=== PATIENT | female | born 1990 | race African-American/Black ===

== ENCOUNTER 2019-12-18 08:43 | Observation (INO) | payer SELFPAY ==
[2019-12-18] MEDS ORDERED: DEXAMETHASONE SOD PHOSPHATE INJ 4 MG/1 ML VIAL ONE (09:21)
[2019-12-18] MEDS ORDERED: ONDANSETRON HCL INJ/PF 4 MG/2 ML SDV ONE (09:21)
[2019-12-18] MEDS ORDERED: NEOSTIGMINE METHYLSULFATE 10 MG/10 ML VIAL ONE (09:21)
[2019-12-18] MEDS ORDERED: GLYCOPYRROLATE 1 MG/5 ML VIAL ONE (09:21)
[2019-12-18] MEDS ORDERED: ROCURONIUM BROMIDE INJ 50 MG/5 ML VIAL IV ONE (09:21)
[2019-12-18 09:22] LABS: BASOPHILS % (AUTO) 0.3 % (0-2); EOSINOPHILS % (AUTO) 0.3 % (0-6); HEMATOCRIT 37.1 % (36.0-47.0); HEMOGLOBIN 12.2 g/dL (12.0-15.5); LYMPHOCYTES % (AUTO) 14.2 % (13-45); MEAN CORPUSCULAR HEMOGLOBIN 28.5 pg (27.0-33.4); MEAN CORPUSCULAR HGB CONC 32.9 g/dL (32.0-36.0); MEAN CORPUSCULAR VOLUME 87 fl (80-97); PLATELET COUNT 335 10^3/uL (150-450); RED BLOOD COUNT 4.28 10^6/uL (3.72-5.28); RED CELL DISTRIBUTION WIDTH 14.8 % (11.5-14.0); SEGMENTED NEUTROPHILS % (AUTO) 78.2 % (42-78); TOTAL CELLS COUNTED % (AUTO) 100 %
[2019-12-18 09:42] LABS: ALBUMIN 4.4 g/dL (3.5-5.0); ALKALINE PHOSPHATASE 76 U/L (38-126); ANION GAP 6 (5-19); ASPARTATE AMINO TRANSFERASE 23 U/L (14-36); BILIRUBIN,TOTAL 0.9 mg/dL (0.2-1.3); BLOOD UREA NITROGEN 8 mg/dL (7-20); CALCIUM 9.2 mg/dL (8.4-10.2); CARBON DIOXIDE 25 mmol/L (22-30); CHLORIDE 106 mmol/L (98-107); GLUCOSE 95 mg/dL (75-110); POTASSIUM 4.2 mmol/L (3.6-5.0); TOTAL PROTEIN 7.6 g/dL (6.3-8.2)
--- NOTE | 2019-12-18 10:37 | ER Document Report ---
ED Medical Screen (RME) - General Chief Complaint: Flank Pain Stated Complaint: FLANK PAIN Time Seen by Provider: 12/18/19 10:10 Notes: HPI: Right flank pain for 5 days with nausea vomiting. Patient presented by EMS. Requested by nursing to see the patient in the triage process. Patient had wanted to leave without being further evaluated. I spoke with the patient at length. Based on the lab work currently that has been processed patient is and this raises concern for ectopic . I spoke with the patient at length about this I gave her the risks of leaving including if she has a tubal or an ectopic or ruptured ectopic. Patient verbalizes understanding of this and now states that she will stay for evaluation PHYSICAL EXAMINATION: Mild tenderness to the right pelvis on palpation limited exam in triage I have greeted and performed a rapid initial assessment of this patient. A comprehensive ED assessment and evaluation of the patient, analysis of test results and completion of medical decision making process will be conducted by an additional ED providers. - Related Data Allergies/Adverse Reactions: No Known Allergies Allergy (Unverified 12/18/19 09:47) Home Medications: denies Past Medical History - Social History Chew tobacco use (# tins/day): No Frequency of alcohol use: Social Drug Abuse: None Past Surgical History: Reports: Hx Section - x2, Hx Tonsillectomy Physical Exam - Vital signs Vitals: Temp Pulse Resp BP Pulse Ox 98.7 F 98 21 H 143/84 H 100 12/18/19 08:50 12/18/19 08:50 12/18/19 08:50 12/18/19 08:50 12/18/19 08:50 Course - Vital Signs Vital signs: Temp Pulse Resp BP Pulse Ox 98.7 F 98 21 H 143/84 H 100 12/18/19 08:50 12/18/19 08:50 12/18/19 08:50 12/18/19 08:50 12/18/19 08:50 - Laboratory Result Diagrams: 12/18/19 09:00 12/18/19 09:00 Laboratory results interpreted by me: 12/18/19 12/18/19 12/18/19 09:00 09:00 09:00 WBC 14.0 H RDW 14.8 H Absolute Neuts (auto) 11.0 H Seg Neutrophils % 78.2 H Sodium 136.5 L Serum HCG, Qual POSITIVE H
[2019-12-18] MEDS ORDERED: NORMAL SALINE 1000 ML 1,000 ML IV ONE ×2 (10:45→13:07)
[2019-12-18] MEDS ORDERED: ONDANSETRON HCL INJ/PF 4 MG/2 ML SDV IV ONE (10:45)
[2019-12-18] MEDS ORDERED: MORPHINE SULFATE 10 MG/ML INJ IV ONE (10:45)
--- NOTE | 2019-12-18 10:56 | ER Document Report ---
Entered by JD BRAY SCRIBE 12/18/19 1039 Acting as scribe for:ROBERT CABRERA MD ED GI/ - General Chief Complaint: Flank Pain Stated Complaint: FLANK PAIN Time Seen by Provider: 12/18/19 10:10 Information source: Patient Notes: This 29 year old female patient presents to the emergency department today with complaints of right lower quadrant abdominal pain for the last four days. Patient reports that the pain now seems to radiate back to her right flank as well. Patient states her LMP was in mid october but she does not know the date. Patient states it also hurts when she moves. - Related Data Allergies/Adverse Reactions: No Known Allergies Allergy (Unverified 12/18/19 09:47) Home Medications: denies Past Medical History - General Information source: Patient - Social History Smoking Status: Current Every Day Smoker Cigarette use (# per day): Yes - 1 pack per week Chew tobacco use (# tins/day): No Frequency of alcohol use: Social - wine Drug Abuse: None Lives with: Family Family History: Reviewed & Not Pertinent Patient has homicidal ideation: No - Medical History Medical History: Negative Past Surgical History: Reports: Hx Section - x2, Hx Tonsillectomy Review of Systems - Review of Systems Constitutional: No symptoms reported EENT: No symptoms reported Cardiovascular: No symptoms reported Respiratory: No symptoms reported Gastrointestinal: See HPI, Abdominal pain - RLQ Genitourinary: See HPI, Flank pain - right Female Genitourinary: No symptoms reported Musculoskeletal: See HPI, Muscle pain, Muscle stiffness Skin: No symptoms reported Hematologic/Lymphatic: No symptoms reported Neurological/Psychological: No symptoms reported -: Yes All other systems reviewed and negative Physical Exam - Vital signs Vitals: Temp Pulse Resp BP Pulse Ox 98.7 F 98 21 H 143/84 H 100 12/18/19 08:50 12/18/19 08:50 12/18/19 08:50 12/18/19 08:50 12/18/19 08:50 - Notes Notes: Physical Exam: General: Alert, appears uncomfortable. HEENT: Normocephalic. Atraumatic. PERRL. Extraocular movements intact. Oropharynx clear. Neck: Supple. Non-tender. Respiratory: No respiratory distress. Clear and equal breath sounds bilaterally. Cardiovascular: Regular rate and rhythm. Abdominal: Obese. Exquisite right lower quadrant tenderness to palpation. Palpating any part of the abdomen causes right lower quadrant pain, RUQ palpation causes the most pain. No distension. Normal Bowel Sounds. Back: No gross abnormalities. Extremities: Moves all four extremities. Upper extremities: Normal inspection. Normal ROM. Lower extremities: Normal inspection. No edema. Normal ROM. Neurological: Normal cognition. AAOx4. Normal speech. Psychological: Normal affect. Normal Mood. Skin: Warm. Dry. Normal color. Course - Re-evaluation Re-evalutation: 12/18/19 12:52 The ultrasound shows an early intrauterine , probably just over 5 weeks size. The white blood cell count is a little elevated with a shift, she does have focal tenderness in the right lower quadrant and McBurney's point region. She will be started on antibiotics while we are waiting for surgical consultation. 12/18/19 14:05 Dr. Christopher came to see the patient, agrees that this is very suspicious for appendicitis and will admit the patient to hospital and have the PRODUCTION REPAIRER monument setter helper consult. - Vital Signs Vital signs: Temp Pulse Resp BP Pulse Ox 98.7 F 98 21 H 143/84 H 100 12/18/19 08:50 12/18/19 08:50 12/18/19 08:50 12/18/19 08:50 12/18/19 08:50 - Laboratory Result Diagrams: 12/18/19 09:00 12/18/19 09:00 Laboratory results interpreted by me: 12/18/19 12/18/19 12/18/19 09:00 09:00 09:00 WBC 14.0 H RDW 14.8 H Absolute Neuts (auto) 11.0 H Seg Neutrophils % 78.2 H Sodium 136.5 L Serum HCG, Qual POSITIVE H Beta HCG, Quant Urine Protein Urine Urobilinogen Urine Ascorbic Acid 12/18/19 12/18/19 09:00 13:08 WBC RDW Absolute Neuts (auto) Seg Neutrophils % Sodium Serum HCG, Qual Beta HCG, Quant 3169.40 H Urine Protein 30 H Urine Urobilinogen 2.0 H Urine Ascorbic Acid 20 H - Diagnostic Test Radiology reviewed: Reports reviewed - Radiology report is possible early intrauterine . No other significant findings. The techs report indicated it measured approximately 5 weeks 2 days. - Consults Dr. Christopher Time consulted: 12:25 Consulted provider: other - Dr. Christopher is currently in the operating room doing a laparoscopic cholecystectomy. The information was passed to him by circulating nurse, and he will call me when he finishes the case. Discharge - Discharge Clinical Impression: Right lower quadrant abdominal pain affecting in first trimester, with 5 completed weeks gestation Leukocytosis Qualifiers: Leukocytosis type: unspecified Qualified Code(s): D72.829 - Elevated white blood cell count, unspecified Condition: Stable Disposition: ADMITTED INPATIENT Admitting Provider: Surgicalist Unit Admitted: Surgical Floor I personally performed the services described in the documentation, reviewed and edited the documentation which was dictated to the scribe in my presence, and it accurately records my words and actions.
--- NOTE | 2019-12-18 12:32 | RADIOLOGY REPORT (SQ) ---
EXAM DESCRIPTION: U/S OB TRANSVAG W/DOPPLER IMAGES COMPLETED DATE/TIME: 12/18/2019 12:23 pm REASON FOR STUDY: pelvic pain COMPARISON: None. TECHNIQUE: Transvaginal static and realtime grayscale images acquired of the pelvis. Additional cecilia cted spectral and color Doppler images recorded. All images stored on PACs. CLINICAL AGE: 7 week 0 days bHC,169 LIMITATIONS: None. FINDINGS: UTERUS: No masses. No anomalies. GESTATIONAL SAC: Normal shape. YOLK SAC: No. POLE: None present. RIGHT ADNEXA: Normal ovary with normal vascular flow. No adnexal free fluid. No adnexal masses. LEFT ADNEXA: Normal ovary with normal vascular flow. There is a 2.8 x 1.9 x 2.2 cm cyst. No adnexal free fluid. No adnexal masses. FREE FLUID: None. OTHER: No other significant finding. IMPRESSION: POSSIBLE EARLY INTRAUTERINE . BHCG LEVEL APPROPRIATE FOR ENDOMETRIAL FINDINGS. CONSIDER F/U BHCG AND/OR ULTRASOUND FOR VERIFICATION AND TO EXCLUDE ECTOPIC . Trimester of : First trimester - 0 to 13 weeks. TECHNICAL DOCUMENTATION: JOB ID: [id number] 2010 [employer]- All Rights Reserved Reading location - IP/workstation name: [email or web address]
[2019-12-18] MEDS ORDERED: PIPERACILLIN/TAZOBACTAM 3.375 GM VIAL IV ONE (12:48)
[2019-12-18 13:52] LABS: AMORPHOUS SEDIMENT,URINE 2+ /HPF; APPEARANCE,URINE TURBID; BILIRUBIN,URINE NEGATIVE (NEGATIVE); GLUCOSE, URINE NEGATIVE (NEGATIVE); KETONES,URINE NEGATIVE (NEGATIVE); LEUKOCYTE ESTERASE,URINE NEGATIVE (NEGATIVE); NITRITE,URINE NEGATIVE (NEGATIVE); PROTEIN,URINE 30 mg/dL (NEGATIVE); URINE SPECIFIC GRAVITY 1.034
[2019-12-18 13:53] LABS: COLOR,URINE YELLOW
[2019-12-18] MEDS ORDERED: DEXTROSE 5%-LACTATED RINGERS 1,000 ML IV ONE (14:05)
--- NOTE | 2019-12-18 14:49 | PDOC CONSULTATION ---
Consultation Consult Date: 12/18/19 Attending physician:: GAEL CHRISTOPHER Provider Consulted: TSERING AWAN Consult reason:: with RLQ pain History of Present Illness Admission Date/PCP: 12/18/19 14:19 Patient complains of: RLQ increasing since Wednesday History of Present Illness: ABIGAIL NORRIS is a 29 year old female at approx 7wks by missed LMP presents for worsening RLQ pain that began last Wednesday. She reports that she began having pain after work on wednesday. She reports that it has come in waves since then and significantly worse this am. She reports that when seen earlier today pain was on right but now has moved also to left and right lower back. She also has had n/v since Wednesday. She reports nausea for 2 wks. SHe has never had pain like this before. G1 - EAB, G2 - FTSVD, G3- C/s - baby passed at 7 months from SIDS, G4- repeat c/s, G5 - FTSVD - , G6 - SAB 06/2019 Past Medical History LMP: unk Gynecological Infection: No Medical History: None Cardiac Medical History: Reports: None Pulmonary Medical History: Reports: None EENT Medical History: Reports: None Neurological Medical History: Reports: None Endocrine Medical History: Reports: None Renal/ Medical History: Reports: None Malignancy Medical History: Reports: None GI Medical History: Reports: None Musculoskeltal Medical History: Reports: None Skin Medical History: Reports: None Psychiatric Medical History: Reports: None Traumatic Medical History: Reports: None Infectious Medical History: Reports: None Social History Information Source: Patient Lives with: Family Smoking Status: Current Every Day Smoker Electronic Cigarette use?: No Frequency of Alcohol Use: None Hx Recreational Drug Use: No Drugs: None Hx Prescription Drug Abuse: No Family History Family History: Reviewed & Not Pertinent Parental Family History Reviewed: No Children Family History Reviewed: NA Sibling(s) Family History Reviewed.: NA Medication/Allergy Home Medications: No Home Medications 12/18/19 Allergies/Adverse Reactions: No Known Allergies Allergy (Unverified 12/18/19 09:47) Review of Systems Constitutional: ABSENT: chills, fever(s), headache(s), weight gain, weight loss Cardiovascular: ABSENT: chest pain, dyspnea on exertion, edema, orthropnea, palpitations Respiratory: ABSENT: cough, hemoptysis Gastrointestinal: PRESENT: abdominal pain, nausea, vomiting Integumentary: ABSENT: rash, wounds Neurological: ABSENT: abnormal gait, abnormal speech, confusion, dizziness, focal weakness, syncope Psychiatric: ABSENT: anxiety, depression, homidical ideation, suicidal ideation Endocrine: ABSENT: cold intolerance, heat intolerance, polydipsia, polyuria Physical Exam - Physical Exam Vital Signs: Temp Pulse Resp BP Pulse Ox 98.7 F 98 21 H 143/84 H 100 12/18/19 08:50 12/18/19 08:50 12/18/19 08:50 12/18/19 08:50 12/18/19 08:50 Intake & Output 12/17/19 12/18/19 12/19/19 06:59 06:59 06:59 Intake Total 1999 Balance 1999 Weight 109.2 kg General appearance: PRESENT: no acute distress, well-developed, well-nourished Head exam: PRESENT: atraumatic, normocephalic Eye exam: PRESENT: conjunctiva pink, EOMI, PERRLA. ABSENT: scleral icterus Neck exam: PRESENT: full ROM. ABSENT: carotid bruit, JVD, lymphadenopathy, thyromegaly Respiratory exam: PRESENT: clear to auscultation taras, symmetrical, unlabored Cardiovascular exam: PRESENT: RRR. ABSENT: diastolic murmur, rubs, systolic murmur Pulses: PRESENT: normal dorsalis pedis pul, +2 pedal pulses bilateral GI/Abdominal exam: PRESENT: guarding - guarding and rebound now extended from right to left side, TTP thoughout lower abdomen., normal bowel sounds, rebound, soft, tenderness. ABSENT: distended, mass, organolmegaly Rectal exam: PRESENT: deferred Extremities exam: PRESENT: full ROM. ABSENT: calf tenderness, clubbing, pedal edema Neurological exam: PRESENT: alert, awake, oriented to person, oriented to place, oriented to time, oriented to situation, CN II-XII grossly intact. ABSENT: motor sensory deficit Psychiatric exam: PRESENT: appropriate affect, normal mood. ABSENT: homicidal ideation, suicidal ideation Skin exam: PRESENT: dry, intact, warm. ABSENT: cyanosis, rash Result Laboratory Results: 12/18/19 09:00 12/18/19 09:00 12/18/19 12/18/19 12/18/19 09:00 09:00 09:00 WBC 14.0 H RBC 4.28 Hgb 12.2 Hct 37.1 MCV 87 MCH 28.5 MCHC 32.9 RDW 14.8 H Plt Count 335 Seg Neutrophils % 78.2 H Sodium 136.5 L Potassium 4.2 Chloride 106 Carbon Dioxide 25 Anion Gap 6 BUN 8 Creatinine 0.67 Est GFR ( Amer) > 60 Glucose 95 Calcium 9.2 Total Bilirubin 0.9 AST 23 Alkaline Phosphatase 76 Total Protein 7.6 Albumin 4.4 Lipase 31.9 Serum HCG, Qual POSITIVE H Urine Color Urine Appearance Urine pH Ur Specific [place] Urine Protein Urine Glucose (UA) Urine Ketones Urine Blood Urine Nitrite Ur Leukocyte Esterase Urine RBC (Auto) Blood Type Antibody Screen 12/18/19 12/18/19 10:59 13:08 WBC RBC Hgb Hct MCV MCH MCHC RDW Plt Count Seg Neutrophils % Sodium Potassium Chloride Carbon Dioxide Anion Gap BUN Creatinine Est GFR ( Amer) Glucose Calcium Total Bilirubin AST Alkaline Phosphatase Total Protein Albumin Lipase Serum HCG, Qual Urine Color YELLOW Urine Appearance TURBID Urine pH 5.0 Ur Specific [place] 1.034 Urine Protein 30 H Urine Glucose (UA) NEGATIVE Urine Ketones NEGATIVE Urine Blood NEGATIVE Urine Nitrite NEGATIVE Ur Leukocyte Esterase NEGATIVE Urine RBC (Auto) 1 Blood Type O POSITIVE Antibody Screen NEGATIVE Impressions: Transvaginal US 12/18/19 10:12 IMPRESSION: POSSIBLE EARLY INTRAUTERINE . BHCG LEVEL APPROPRIATE FOR ENDOMETRIAL FINDINGS. CONSIDER F/U BHCG AND/OR ULTRASOUND FOR VERIFICATION AND TO EXCLUDE ECTOPIC . Trimester of : First trimester - 0 to 13 weeks. Status: Imported from PACS Assessment & Plan - Diagnosis (1) Leukocytosis Qualifiers: Leukocytosis type: unspecified Qualified Code(s): D72.829 - Elevated white blood cell count, unspecified Is this a current diagnosis for this admission?: Yes Plan: recommended GC/CT also on dirty catch UA or swab. Likely from intra-abdominal process that is causing her pain. Normal ovaries with no e/o torsion. Based on history and exam suspect appy (2) with 5 completed weeks gestation Is this a current diagnosis for this admission?: Yes Plan: unknown lmp but reports missed last menses. Appears early IUP on US - do not see FP/YS at this time likely due to early gestations. Reviewed risks of appendicitis in and reviewed risks of surgical inte rvention in . She spoke with her partner who is in [place] because his son is sick. This is certainly a desired . Reviewed risks of loss and miscarriage with appendicitis and without and with surgery. (3) Right lower quadrant abdominal pain affecting in first trimester Is this a current diagnosis for this admission?: Yes Plan: appears to be appendicitis by exam and history. D/w Dr. Mendez who asked me to see patient. Patient desires to proceed with surgical evaluation - this was conveyed to Dr. Christopher - Time Time Spent: 30 to 50 Minutes Critical Time spent with patient: Less than 15 minutes Smoking Cessation Education: 3 to 10 minutes Medications reviewed and adjusted accordingly: Yes Anticipated Discharge Disposition: Home, Self Care Anticipated Discharge Timeframe: within 48 hours - Inpatient Certification Based on my medical assessment, after consideration of the patient's comorbidities, presenting symptoms, or acuity I expect that the services needed warrant INPATIENT care.: Yes I certify that my determination is in accordance with my understanding of Medicare's requirements for reasonable and necessary INPATIENT services [42 CFR 412.3e].: Yes Medical Necessity: Need Close Monitoring Due to Risk of Patient Decompensation, Need For IV Fluids, Need for Pain Control, Need for IV Antibiotics, Need for Surgery
[2019-12-18] MEDS ORDERED: DEXTROSE 50%-WATER 25 GM/50 ML DISP.SYRIN IV PRN ×2 (15:04)
[2019-12-18] MEDS ORDERED: GLUCAGON,HUMAN RECOMB 1 MG INJ SUBCUT PRN (15:04)
[2019-12-18] MEDS ORDERED: DEXTROSE 40% GEL 15 GM TUBE PO PRN ×2 (15:04)
--- NOTE | 2019-12-18 15:17 | PDOC H&P ---
History of Present Illness Admission Date/PCP: 12/18/19 14:19 Patient complains of: Abdominal pain History of Present Illness: ABIGAIL NORRIS is a 29 year old female Presents emergency department with a 3-day history of abdominal pain, nonradiating initially, localized to the pelvic region, associate with nausea, anorexia, and multiple episodes of vomiting over the last 24 hours. She was brought by ground rescue into the ER this morning where she is found to have significant right lower quadrant tenderness. A transvaginal ultrasound revealed a intrauterine approximately 5.5 weeks. Patient admits to having missed her period last month. Patient is from [facility] now getting established in [place]. Her white blood cell count was elevated 14,000. The transvaginal ultrasound demonstrated normal right tube and ovary, and negligible fluid in the pelvis. Surgery was consulted and opined that patient may in fact have acute appendicitis. RADIOLOGY RECEPTIONIST was consulted, and Dr. Green agreed with the clinical impression. Further discussion was held with the patient and her significant other, specifically regarding the risk of loss while undergoing general anesthesia. Patient agreed to proceed; Arrangements were made for admission and definitive management by the surgical service. Past Medical History Past Medical History: None Cardiac Medical History: Reports: None Pulmonary Medical History: Reports: None EENT Medical History: Reports: None Neurological Medical History: Reports: None Endocrine Medical History: Reports: None Renal/ Medical History: Reports: None Malignancy Medical History: Reports: None GI Medical History: Reports: None Musculoskeltal Medical History: Reports: None Skin Medical History: Reports: None Psychiatric Medical History: Reports: None Traumatic Medical History: Reports: None Infectious Medical History: Reports: None Past Surgical History Past Surgical History: Reports: Section - x2, Tonsillectomy Social History Lives with: Family Smoking Status: Current Every Day Smoker Electronic Cigarette use?: No Frequency of Alcohol Use: None Hx Recreational Drug Use: No Drugs: None Hx Prescription Drug Abuse: No Family History Family History: None, Reviewed & Not Pertinent Parental Family History Reviewed: No Children Family History Reviewed: No Sibling(s) Family History Reviewed.: No Medication/Allergy Home Medications: No Home Medications 12/18/19 Allergies/Adverse Reactions: No Known Allergies Allergy (Unverified 12/18/19 09:47) Review of Systems Constitutional: PRESENT: as per HPI Eyes: ABSENT: visual disturbances Ears: ABSENT: hearing changes Cardiovascular: ABSENT: chest pain, dyspnea on exertion, edema, orthropnea, palpitations Respiratory: ABSENT: cough, hemoptysis Gastrointestinal: PRESENT: as per HPI, other - Denies previous abdominal pain, trauma, or history of gastrointestinal illnesses Genitourinary: PRESENT: other - None Musculoskeletal: PRESENT: back pain - Back pain today Endocrine: ABSENT: cold intolerance, heat intolerance, polydipsia, polyuria Hematologic/Lymphatic: ABSENT: easy bleeding, easy bruising Physical Exam Vital Signs: Temp Pulse Resp BP Pulse Ox 98.7 F 98 21 H 143/84 H 100 12/18/19 08:50 12/18/19 08:50 12/18/19 08:50 12/18/19 08:50 12/18/19 08:50 Intake & Output 12/17/19 12/18/19 12/19/19 06:59 06:59 06:59 Intake Total 1999 Balance 1999 Weight 109.2 kg General appearance: PRESENT: other - Mild distress Head exam: PRESENT: normocephalic, other - Has hairpiece Eye exam: PRESENT: EOMI Mouth exam: PRESENT: dry mucosa Neck exam: PRESENT: full ROM Respiratory exam: PRESENT: clear to auscultation taras Cardiovascular exam: PRESENT: RRR Pulses: PRESENT: normal carotid pulses, normal radial pulses, normal femoral pulses GI/Abdominal exam: PRESENT: other - Abdomen slightly distended; tender right lower quadrant with guarding and referred pain to the right lower quadrant. Rectal exam: PRESENT: deferred Extremities exam: PRESENT: full ROM Musculoskeletal exam: PRESENT: full ROM Neurological exam: PRESENT: oriented to person, oriented to place, oriented to time, oriented to situation Psychiatric exam: PRESENT: appropriate affect Skin exam: PRESENT: dry Results Laboratory Results: 12/18/19 09:00 12/18/19 09:00 12/18/19 12/18/19 12/18/19 09:00 09:00 09:00 WBC 14.0 H RBC 4.28 Hgb 12.2 Hct 37.1 MCV 87 MCH 28.5 MCHC 32.9 RDW 14.8 H Plt Count 335 Seg Neutrophils % 78.2 H Sodium 136.5 L Potassium 4.2 Chloride 106 Carbon Dioxide 25 Anion Gap 6 BUN 8 Creatinine 0.67 Est GFR ( Amer) > 60 Glucose 95 Calcium 9.2 Total Bilirubin 0.9 AST 23 Alkaline Phosphatase 76 Total Protein 7.6 Albumin 4.4 Lipase 31.9 Serum HCG, Qual POSITIVE H Urine Color Urine Appearance Urine pH Ur Specific [place] Urine Protein Urine Glucose (UA) Urine Ketones Urine Blood Urine Nitrite Ur Leukocyte Esterase Urine RBC (Auto) Blood Type Antibody Screen 12/18/19 12/18/19 10:59 13:08 WBC RBC Hgb Hct MCV MCH MCHC RDW Plt Count Seg Neutrophils % Sodium Potassium Chloride Carbon Dioxide Anion Gap BUN Creatinine Est GFR ( Amer) Glucose Calcium Total Bilirubin AST Alkaline Phosphatase Total Protein Albumin Lipase Serum HCG, Qual Urine Color YELLOW Urine Appearance TURBID Urine pH 5.0 Ur Specific [place] 1.034 Urine Protein 30 H Urine Glucose (UA) NEGATIVE Urine Ketones NEGATIVE Urine Blood NEGATIVE Urine Nitrite NEGATIVE Ur Leukocyte Esterase NEGATIVE Urine RBC (Auto) 1 Blood Type O POSITIVE Antibody Screen NEGATIVE Impressions: Transvaginal US 12/18/19 10:12 IMPRESSION: POSSIBLE EARLY INTRAUTERINE . BHCG LEVEL APPROPRIATE FOR ENDOMETRIAL FINDINGS. CONSIDER F/U BHCG AND/OR ULTRASOUND FOR VERIFICATION AND TO EXCLUDE ECTOPIC . Trimester of : First trimester - 0 to 13 weeks. Assessment & Plan - Diagnosis (1) Right lower quadrant abdominal pain affecting in first trimester Is this a current diagnosis for this admission?: Yes Plan: Impression: Clinical history, physical exam leukocytosis all concerning for acute appendicitis in 29-year-old female, otherwise healthy, with early intrauterine Recommendations: 1. Admit to the surgical service, keep n.p.o. on IV fluids and intravenous antibiotics 2. I discussed patient's clinical situation with the patient, Dr. Oakes, and Dr. Green. We collectively believe the patient is suffering from acute a ppendicitis and deserves exploratory laparoscopy, appendectomy. I do not believe an MRI scan will add value. Patient understands that general anesthesia and surgery may precipitate loss of intrauterine . She agrees to proceed. 3. We are testing her COVID-19 status. (2) Leukocytosis Qualifiers: Leukocytosis type: unspecified Qualified Code(s): D72.829 - Elevated white blood cell count, unspecified Is this a current diagnosis for this admission?: Yes (3) with 5 completed weeks gestation Is this a current diagnosis for this admission?: Yes - Time Time Spent: 30 to 50 Minutes Smoking Cessation Education: 3 to 10 minutes Medications reviewed and adjusted accordingly: Yes Anticipated Discharge Disposition: Home, Self Care Anticipated Discharge Timeframe: within 24 hours
[2019-12-18] MEDS ORDERED: HYDROMORPHONE HCL INJ/PF 2 MG/ML AMPULE ONE (15:40)
[2019-12-18] MEDS ORDERED: PROPOFOL INJ 200 MG/20 ML VIAL IV ONE (15:41)
[2019-12-18] MEDS ORDERED: BUPIVACAINE HCL 0.25 % INJ/PF (2.5 MG/1 ML) 30 ML VIAL ONE (16:49)
[2019-12-18] MEDS ORDERED: FENTANYL CITRATE INJ/PF 100 MCG/2 ML AMPUL IV PRN ×3 (18:11)
[2019-12-18] MEDS ORDERED: MEPERIDINE HCL/PF INJ 25 MG/1 ML DISP.SYRIN IV PRN (18:11)
[2019-12-18] MEDS ORDERED: DIPHENHYDRAMINE HCL 50 MG/ML VIAL IV PRN (18:11)
[2019-12-18] MEDS ORDERED: PROMETHAZINE HCL INJ 25 MG/1 ML VIAL IV PRN ×2 (18:11)
[2019-12-18] MEDS ORDERED: OXYCODONE-ACETAMINOPHEN 5-325 MG TABLET PO PRN ×3 (18:11→18:42)
[2019-12-18] MEDS ORDERED: ONDANSETRON HCL INJ/PF 4 MG/2 ML SDV IV PRN ×2 (18:11→18:42)
[2019-12-18] MEDS ORDERED: ACETAMINOPHEN 1,000 MG/100 ML RTUPB IV ONE ×2 (18:21→23:24)
--- NOTE | 2019-12-18 18:49 | Operative Report ---
Operative Report DATE OF SURGERY: 12/18/19 PREOPERATIVE DIAGNOSIS: 1. Acute abdominal pain rule out acute appendicitis. 2. Intrauterine first trimester POSTOPERATIVE DIAGNOSIS: Same with early appendicitis OPERATION: Laparoscopic appendectomy SURGEON: GAEL LINN ANESTHESIA: GA TISSUE REMOVED OR ALTERED: 1 appendix COMPLICATIONS: None ESTIMATED BLOOD LOSS: Scant INTRAOPERATIVE FINDINGS: See below PROCEDURE: The patient was taken to the preop holding area to the main operating room where general anesthesia was induced. Muniz catheter was inserted and clear slightly aicha-yellow urine returned. The abdomen was prepped and draped sterile fashion, and instrumentation set up for laparoscopic appendectomy. Surgical plan and surgical timeout were conducted. Sites for 3 port laparoscopy were anesthetized 1% plain lidocaine. A supraumbilical vertical incision was made with a 15 blade, Veress needle inserted the peritoneal cavity pneumoperitoneum was established. Veress needle was removed, 5 mm ports inserted and a 5 mm flexible scope was inserted. Under direct visualization 2 additional ports were placed, 5 mm in the suprapubic position, and a 12 mm in the left lower quadrant. There was an adhesion between the anterior abdominal wall and the greater omentum which was pushed aside with graspers. There was no evidence of vascular or visceral injury. We inspected the peritoneal cavity. The gallbladder was unremarkable. There was no pus, fluid, or inflammatory changes visible on any of the peritoneal, or visceral surfaces. The uterus was visualized, and felt to be consistent with a early . The right tube and ovary as well as the left tube and ovary were visualized and felt to be within normal limits. Photos were taken. Again there was no blood in the pelvis or pus. The appendix was visualized. It was easily elongated, and slightly generous in diameter but not acutely inflamed, or purulent. We elevated up out of the pelvis, and opened up the peritoneal reflection to release the appendix further into the free peritoneal space. I now opened up the mesoappendix at its instrument with the appendix proper at its midpoint and at its base just adjacent to the cecum. We brought onto the field a blue load 45 mm [place] stapler and proceeded to deploy it 3 times, once at the base of the appendix effectively amputating the appendix, and then twice across the mesoappendix. During this time, the ileocecal junction was visualiz ed and felt to be out of harm's way. The appendix now was placed in an Endobag and brought out of the patient We reinspected the staple line across the mesoappendix, as well as the appendiceal stump, photos taken, and were confident these staple lines were secure. We reinspected the pelvis, check for any bleeding or any other abnormal findings and there were none. We felt the operation was complete. Sponge and needle counts are correct. All ports removed under direct visualization, pneumoperitoneum evacuated, wounds closed with 3-0 Vicryl, benzoin and Steri- Strips. Patient tolerated the procedure well, extubated, taken to the recovery room in stable condition. Muniz catheter will be removed.
[2019-12-18] MEDS: ACETAMINOPHEN INJ/PF 1000 MG/100 ML SDV IV SCH (23:35)
[2019-12-19] MEDS: ACETAMINOPHEN INJ/PF 1000 MG/100 ML SDV IV SCH (06:03)
[2019-12-19 07:44] VITALS: BP 139/90
--- NOTE | 2019-12-19 09:28 | PDOC DISCHARGE SUMMARY ---
General - Admit/Disc Date/PCP Admission Date/Primary Care Provider: 12/18/19 14:19 Discharge Date: 12/19/19 - Discharge Diagnosis Final Diagnosis: appendicitis - Assessment Summary: This is a 29-year-old female who is 5 weeks presenting with abdominal pain to the emergency room yesterday signs and symptoms were consistent with acute appendicitis. She was taken to the operating room where she underwent a laparoscopic appendectomy. Appendix was mildly inflamed. The patient following day was doing well her pain was resolved and she was ready for discharge home. She will be discharged home today with a follow-up in surgical clinic in 7 to 10 days. - Additional Information Resuscitation Status: Full Code Discharge Diet: As Tolerated, Regular Discharge Activity: Activity As Tolerated, No Lifting Over 10 Pounds - Follow-up in surgical clinic in 7 to 10 days Home Medications: No Home Medications 12/18/19 History of Present Illiness History of Present Illness: ABIGAIL NORRIS is a 29 year old female Physical Exam Vital Signs: Temp Pulse Resp BP Pulse Ox 98.5 F 75 16 139/90 H 100 12/19/19 08:45 12/19/19 08:45 12/19/19 08:45 12/19/19 08:45 12/19/19 08:45 Intake & Output 12/18/19 12/19/19 12/20/19 06:59 06:59 06:59 Intake Total 6350 Output Total 670 Balance 5680 Weight 109.2 kg Results Laboratory Results: WBC 14.0 10^3/uL (4.0-10.5) H 12/18/19 09:00 RBC 4.28 10^6/uL (3.72-5.28) 12/18/19 09:00 Hgb 12.2 g/dL (12.0-15.5) 12/18/19 09:00 Hct 37.1 % (36.0-47.0) 12/18/19 09:00 MCV 87 fl (80-97) 12/18/19 09:00 MCH 28.5 pg (27.0-33.4) 12/18/19 09:00 MCHC 32.9 g/dL (32.0-36.0) 12/18/19 09:00 RDW 14.8 % (11.5-14.0) H 12/18/19 09:00 Plt Count 335 10^3/uL (150-450) 12/18/19 09:00 Lymph % (Auto) 14.2 % (13-45) 12/18/19 09:00 [place] % (Auto) 7.0 % (3-13) 12/18/19 09:00 Eos % (Auto) 0.3 % (0-6) 12/18/19 09:00 Baso % (Auto) 0.3 % (0-2) 12/18/19 09:00 Absolute Neuts (auto) 11.0 10^3/uL (1.7-8.2) H 12/18/19 09:00 Absolute Lymphs (auto) 2.0 10^3/uL (0.5-4.7) 12/18/19 09:00 Absolute Monos (auto) 1.0 10^3/uL (0.1-1.4) 12/18/19 09:00 Absolute Eos (auto) 0.0 10^3/uL (0.0-0.6) 12/18/19 09:00 Absolute Basos (auto) 0.0 10^3/uL (0.0-0.2) 12/18/19 09:00 Seg Neutrophils % 78.2 % (42-78) H 12/18/19 09:00 Sodium 136.5 mmol/L (137-145) L 12/18/19 09:00 Potassium 4.2 mmol/L (3.6-5.0) 12/18/19 09:00 Chloride 106 mmol/L (98-107) 12/18/19 09:00 Carbon Dioxide 25 mmol/L (22-30) 12/18/19 09:00 Anion Gap 6 (5-19) 12/18/19 09:00 BUN 8 mg/dL (7-20) 12/18/19 09:00 Creatinine 0.67 mg/dL (0.52-1.25) 12/18/19 09:00 Est GFR ( Amer) > 60 (>60) 12/18/19 09:00 Est GFR (MDRD) Non-Af > 60 (>60) 12/18/19 09:00 Glucose 95 mg/dL (75-110) 12/18/19 09:00 Calcium 9.2 mg/dL (8.4-10.2) 12/18/19 09:00 Total Bilirubin 0.9 mg/dL (0.2-1.3) 12/18/19 09:00 Direct Bilirubin 0.0 mg/dL (0.0-0.4) 12/18/19 09:00 Neonat Total Bilirubin Not Reportable 12/18/19 09:00 Neonat Direct Bilirubin Not Reportable 12/18/19 09:00 Neonat Indirect Bili Not Reportable 12/18/19 09:00 AST 23 U/L (14-36) 12/18/19 09:00 ALT 22 U/L (<35) 12/18/19 09:00 Alkaline Phosphatase 76 U/L (38-126) 12/18/19 09:00 Total Protein 7.6 g/dL (6.3-8.2) 12/18/19 09:00 Albumin 4.4 g/dL (3.5-5.0) 12/18/19 09:00 Lipase 31.9 U/L (23-300) 12/18/19 09:00 Serum HCG, Qual POSITIVE (NEGATIVE) H 12/18/19 09:00 Beta HCG, Quant 3169.40 mIU/mL (0.0-6.15) H 12/18/19 09:00 Total Beta HCG POSITIVE (NEGATIVE) 12/18/19 09:00 Urine Color YELLOW 12/18/19 13:08 Urine Appearance TURBID 12/18/19 13:08 Urine pH 5.0 (5.0-9.0) 12/18/19 13:08 Ur Specific [place] 1.034 12/18/19 13:08 Urine Protein 30 mg/dL (NEGATIVE) H 12/18/19 13:08 Urine Glucose (UA) NEGATIVE mg/dL (NEGATIVE) 12/18/19 13:08 Urine Ketones NEGATIVE mg/dL (NEGATIVE) 12/18/19 13:08 Urine Blood NEGATIVE (NEGATIVE) 12/18/19 13:08 Urine Nitrite NEGATIVE (NEGATIVE) 12/18/19 13:08 Urine Bilirubin NEGATIVE (NEGATIVE) 12/18/19 13:08 Urine Urobilinogen 2.0 mg/dL (<2.0) H 12/18/19 13:08 Ur Leukocyte Esterase NEGATIVE (NEGATIVE) 12/18/19 13:08 Urine RBC (Auto) 1 /HPF 12/18/19 13:08 Squamous Epi Cells Auto 2 /HPF 12/18/19 13:08 Amorphous Sediment Auto 2+ /HPF 12/18/19 13:08 Urine Mucus (Auto) MANY /LPF 12/18/19 13:08 Urine Ascorbic Acid 20 (NEGATIVE) H 12/18/19 13:08 SARS-CoV-2 (PCR) NEGATIVE (NEGATIVE) 12/18/19 15:21 Blood Type O POSITIVE 12/18/19 10:59 Antibody Screen NEGATIVE 12/18/19 10:59 Impressions: Transvaginal US 12/18/19 10:12 IMPRESSION: POSSIBLE EARLY INTRAUTERINE . BHCG LEVEL APPROPRIATE FOR ENDOMETRIAL FINDINGS. CONSIDER F/U BHCG AND/OR ULTRASOUND FOR VERIFICATION AND TO EXCLUDE ECTOPIC . Trimester of : First trimester - 0 to 13 weeks.
== END 2019-12-19 10:26 | disposition home or self-care (01) ==
LOC: ER 08:43 → INTOOBSV 14:19 → EH 14:19 → 2N 19:45
PROVIDERS: ADMIT Surgery; ATTEND Surgery
PROC: 0DTJ4ZZ Resection of Appendix, Percutaneous Endoscopic Approach (ICD-10-PCS; principal; 2019-12-18 16:15)
DX: O99.611 Diseases of the digestive system complicating pregnancy, first trimester (principal); K35.80 Unspecified acute appendicitis; O99.331 Smoking (tobacco) complicating pregnancy, first trimester; F17.210 Nicotine dependence, cigarettes, uncomplicated; Z20.828 Contact with and (suspected) exposure to other viral communicable diseases; Z3A.01 Less than 8 weeks gestation of pregnancy
CPT/HCPCS: 99285; 96361; 96375; 96365; 86900; 86901; 36415; 86850; 84702; 83690; 84703; 85025; 87635; 80053; 81001; 88304 ×2; 76817; 93976; 44970; C1758; J3490 ×2; J1100; J2270; J2710; J1170; J2405; J7121; J7030; J2704; J2543; J0131 ×2; C9803; 840; 99140

== ENCOUNTER → 2020-01-10 | Outpatient (CLI) | payer SELFPAY ==
--- NOTE | 2020-01-10 13:58 | RADIOLOGY REPORT (SQ) ---
EXAM DESCRIPTION: U/S [id number] TRNABD 1GES W/ODOP IMAGES COMPLETED DATE/TIME: 01/10/2020 1:48 pm REASON FOR STUDY: ENCTR FOR SUPERVISION OF OTHER NORMAL , 1ST TRIMESTER (Z34.81) Z34.81 EN COUNTER FOR SUPRVSN OF NORMAL , FIRST TRIM COMPARISON: None. TECHNIQUE: Transabdominal static and realtime grayscale images acquired of the pelvis. Additional se lected spectral and color Doppler images recorded. All images stored on PACs. CG: Not available. CLINICAL DATES: 9 weeks 5 days. LIMITATIONS: None. FINDINGS: FETUS: Single Living intrauterine . ULTRASOUND EGA: 8 week 0 days. ULTRASOUND RITU: 09/10/2020. EFW: Not applicable less than 20 weeks. CRL: 1.61 cm. FHR: 169 beats per minute. SURVEY: Too early to assess. AMNIOTIC FLUID: Too early to assess. PLACENTA: Not yet developed due to early gestation. SUBCHORIONIC BLEED: No. SIZE OF BLEED: Not applicable. UTERUS: No masses. No anomalies. CERVICAL LENGTH: 3.5 cm. Closed. RIGHT ADNEXA: Normal ovary with normal vascular flow. No adnexal free fluid. No adnexal masses. LEFT ADNEXA: Multiple left ovarian cyst. Normal flow. The largest measures 3.4 x 2.8 x 2.7 cm. No adnexal free fluid. No adnexal masses. FREE FLUID: None. OTHER: No other significant finding. IMPRESSION: LIVING INTRAUTERINE . EGA 8 WEEK 0 DAYS. Trimester of : First trimester - 0 to 13 weeks. TECHNICAL DOCUMENTATION: JOB ID: [id number] [employer]*- All Rights Reserved rev-10/01 Reading location - IP/workstation name: [email or web address]
== END ==
LOC: RAD 13:13
PROVIDERS: ATTEND Nurse Practitioner Family
DX: Z34.81 Encounter for supervision of other normal pregnancy, first trimester (principal); Z3A.09 9 weeks gestation of pregnancy
CPT/HCPCS: 76801

== ENCOUNTER 2020-02-24 12:22 | Emergency (ER) | payer MEDICAID ==
--- NOTE | 2020-02-24 12:43 | ER Document Report ---
ED Medical Screen (RME) - General Stated Complaint: DIZZINESS, SYNCOPE Time Seen by Provider: 02/24/20 12:34 Primary Care Provider: SEAN TALAVERA ARNP [Primary Care Provider] - Follow up as needed Notes: HPI: 29-year-old female who is 16 weeks presenting for evaluation by EMS of a syncopal episode at home. Patient got up felt lightheaded and slid down to the floor from her bed. No abdominal pain nausea vomiting. Daughter witnessed her on the floor and states that she was "unconscious" for several seconds. Denies headache denies chest pain denies shortness of breath PHYSICAL EXAMINATION: No abdominal pain on palpation gravid uterus palpable. Lung sounds are clear to auscultation regular rate and rhythm. I have greeted and performed a rapid initial assessment of this patient. A comprehensive ED assessment and evaluation of the patient, analysis of test results and completion of medical decision making process will be conducted by an additional ED providers. - Related Data Allergies/Adverse Reactions: No Known Allergies Allergy (Verified 02/24/20 12:33) Past Medical History Psychiatric Medical History: Reports: Hx Depression Past Surgical History: Reports: Hx Section - x2, Hx Tonsillectomy Physical Exam - Vital signs Vitals: Temp Pulse Resp BP Pulse Ox 98.4 F 95 16 124/80 100 02/24/20 12:26 02/24/20 12:02/24/20 12:02/24/20 12:26 02/24/20 12:26 Course - Vital Signs Vital signs: Temp Pulse Resp BP Pulse Ox 98.4 F 95 16 124/80 100 02/24/20 12:26 02/24/20 12:26 02/24/20 12:02/24/20 12:26 02/24/20 12:26 Doctor's Discharge - Discharge Referrals: SEAN TALAVERA ARNP [Primary Care Provider] - Follow up as needed
[2020-02-24 13:57] LABS: ALKALINE PHOSPHATASE 72 U/L (38-126); ANION GAP 8 (5-19); ASPARTATE AMINO TRANSFERASE 25 U/L (14-36); BILIRUBIN,DIRECT 0.2 mg/dL (0.0-0.4); BILIRUBIN,TOTAL 0.7 mg/dL (0.2-1.3); BLOOD UREA NITROGEN 8 mg/dL (7-20); CALCIUM 9.7 mg/dL (8.4-10.2); CARBON DIOXIDE 24 mmol/L (22-30); CHLORIDE 103 mmol/L (98-107); GLUCOSE 83 mg/dL (75-110); POTASSIUM 3.9 mmol/L (3.6-5.0); TOTAL PROTEIN 7.4 g/dL (6.3-8.2)
[2020-02-24 14:17] LABS: ABSOLUTE EOSINOPHILS # (AUTO) 0.1 10^3/uL (0.0-0.6); ABSOLUTE LYMPHOCYTES (AUTO) 2.2 10^3/uL (0.5-4.7); ABSOLUTE MONOCYTES (AUTO) 0.6 10^3/uL (0.1-1.4); ABSOLUTE NEUT (AUTO) 4.5 10^3/uL (1.7-8.2); BASOPHILS % (AUTO) 0.4 % (0-2); EOSINOPHILS % (AUTO) 0.9 % (0-6); HEMATOCRIT 35.8 % (36.0-47.0); HEMOGLOBIN 12.1 g/dL (12.0-15.5); LYMPHOCYTES % (AUTO) 29.2 % (13-45); MEAN CORPUSCULAR HEMOGLOBIN 29.6 pg (27.0-33.4); MEAN CORPUSCULAR HGB CONC 33.8 g/dL (32.0-36.0); MEAN CORPUSCULAR VOLUME 88 fl (80-97); MONOCYTES % (AUTO) 8.1 % (3-13); PLATELET COUNT 292 10^3/uL (150-450); RED BLOOD COUNT 4.09 10^6/uL (3.72-5.28); RED CELL DISTRIBUTION WIDTH 15.1 % (11.5-14.0); SEGMENTED NEUTROPHILS % (AUTO) 61.4 % (42-78); TOTAL CELLS COUNTED % (AUTO) 100 %; WHITE BLOOD COUNT 7.4 10^3/uL (4.0-10.5)
[2020-02-24] MEDS ORDERED: DEXTROSE 5%-LACTATED RINGERS 1,000 ML IV ONE (14:32)
--- NOTE | 2020-02-24 14:32 | ER Document Report ---
ED General - General Chief Complaint: Dizziness Stated Complaint: DIZZINESS, SYNCOPE Time Seen by Provider: 02/24/20 12:34 Primary Care Provider: SEAN TALAVERA ARNP [NO LOCAL MD] - Follow up as needed Mode of Arrival: Medic Information source: Patient Notes: 29-year-old female patient 16 weeks was out working in the yard wearing a sweater. She states she is trying to get some trash cleaned up and burn trash in a barrel. She did not eat this morning, and had not really been drinking much fluids. She noticed she was feeling little lightheaded so she went into the house into her room. She remembers getting up and feeling very lightheaded and next woke up on the floor. Her daughter reports that she slid to the floor and seemed unconscious for several seconds. She did receive IV fluids from EMS is feeling a little better at this time. - Related Data Allergies/Adverse Reactions: No Known Allergies Allergy (Verified 02/24/20 12:33) Past Medical History - General Information source: Patient, Relative - Social History Smoking Status: Former Smoker Cigarette use (# per day): No Chew tobacco use (# tins/day): No Smoking Education Provided: No Frequency of alcohol use: None Drug Abuse: None Lives with: Family Family History: Reviewed & Not Pertinent Psychiatric Medical History: Reports: Hx Depression Past Surgical History: Reports: Hx Appendectomy, Hx Section - x2, Hx Tonsillectomy Review of Systems - Review of Systems Constitutional: No symptoms reported EENT: No symptoms reported Cardiovascular: No symptoms reported Respiratory: No symptoms reported, Hurts to breathe Genitourinary: No symptoms reported Female Genitourinary: See HPI, Musculoskeletal: No symptoms reported Skin: No symptoms reported Hematologic/Lymphatic: No symptoms reported Neurological/Psychological: No symptoms reported Physical Exam - Vital signs Vitals: Temp Pulse Resp BP Pulse Ox 98.4 F 95 16 124/80 100 02/24/20 12:26 02/24/20 12:26 02/24/20 12:26 02/24/20 12:26 02/24/20 12:26 - General General appearance: Appears well, Alert In distress: None - HEENT Head: Normocephalic, Atraumatic Eyes: Normal Pupils: PERRL Mouth/Lips: Other - Mouth is a little dry Neck: Normal - Respiratory Respiratory status: No respiratory distress Breath sounds: Normal - Cardiovascular Rhythm: Regular Heart sounds: Normal auscultation Murmur: No - Abdominal Inspection: Obese Bowel sounds: Normal Tenderness: Tender - Mildly tender to palpate throughout the abdomen with no guarding and no rebound - Back Back: Normal - Extremities General upper extremity: Normal inspection General lower extremity: Normal inspection - Neurological Neuro grossly intact: Yes - Psychological Associated symptoms: Normal affect, Normal mood - Skin Skin Temperature: Warm Skin Moisture: Dry Skin Color: Normal Course - Re-evaluation Re-evalutation: 02/24/20 15:40 After 1 L of D5LR, patient states she feels much better, she is hungry and wants to go home. Her urine was quite concentrated, with large ketones. Her blood sugar was about 85. She admits not eating today or drinking much fluids but going outside to do work. - Vital Signs Vital signs: Temp Pulse Resp BP Pulse Ox 98.4 F 95 16 124/80 100 02/24/20 12:26 02/24/20 12:26 02/24/20 12:26 02/24/20 12:26 02/24/20 12:26 - Laboratory Result Diagrams: 02/24/20 13:12 02/24/20 13:12 Laboratory results interpreted by me: 02/24/20 02/24/20 02/24/20 13:12 13:12 14:20 Hct 35.8 L RDW 15.1 H Sodium 135.0 L Urine Protein 30 H Urine Ketones 80 H Urine Ascorbic Acid 40 H - EKG Interpretation by Md EKG shows normal: Sinus rhythm, Bearden, Intervals, QRS Complexes. abnormal: ST-T Waves - Borderline T wave abnormalities Rate: Normal - 89 Rhythm: NSR Discharge - Discharge Clinical Impression: Syncope and collapse, Dehydration, with 16 completed weeks gestation Condition: Stable Disposition: HOME, SELF-CARE Additional Instructions: Syncopal Episode Syncope (fainting or near-fainting) can occur from many different health problems. Or it can be a simple fainting spell requiring no treatment. It is safe for you to go home, but further evaluation will likely be necessary. Your work-up may include tests for internal bleeding, heart disease, medi cation problems, or near-strokes. Tests are not always required, however, depending on the nature of your problem. The warning signs of an impending faint include: dizziness, lightheadedness, nausea, hot flashes, tingling, and weakness. If this happens, lay down and put your feet up, then wait until all of these symptoms have passed before standing up again. If these episodes become recurrent, or if you develop chest pain, heart palpitations, mental confusion, blurred vision, or headache, then you should call the physician, or go to the emergency room. Dehydration Dehydration can result from vomiting or diarrhea, fever, or decreased intake of fluids. If severe, hospitalization and intravenous fluids may be required. Most cases are treated at home with fluids by mouth. For the next 24 hours, drink lots of clear fluids. In mild cases, this can be soda pop or sports drinks. For more severe dehydration, the doctor may recommend special fluids such as Pedialyte or Lytren. Try to get three liters (3 quarts) of fluid per day. If vomiting occurs, continue to drink the fluids frequently (every 15 to 20 minutes), but in small amounts (one or two ounces). Depending on the type of dehydration, the doctor may prescribe antinausea medicine or potassium replacements. Call the doctor or return for re-examination if you become progressively weak, vomit repeatedly, or have other new symptoms. Eat good balanced meals, drink plenty of fluids throughout the day and evening. Rest today. Follow-up with your [facility] doctor if you continue to have problems. RETURN TO THE EMERGENCY ROOM IF ANY NEW OR WORSENING SYMPTOMS. Referrals: SEAN TALAVERA ARNP [NO LOCAL MD] - Follow up as needed
[2020-02-24 14:39] LABS: APPEARANCE,URINE SLIGHTLY-CLOUDY; BILIRUBIN,URINE NEGATIVE (NEGATIVE); COLOR,URINE AMBER; GLUCOSE, URINE NEGATIVE (NEGATIVE); KETONES,URINE 80 mg/dL (NEGATIVE); LEUKOCYTE ESTERASE,URINE NEGATIVE (NEGATIVE); NITRITE,URINE NEGATIVE (NEGATIVE); PROTEIN,URINE 30 mg/dL (NEGATIVE); URINE SPECIFIC GRAVITY 1.029; UROBILINOGEN,URINE NEGATIVE mg/dL (<2.0)
[2020-02-24 16:00] VITALS: BP 135/72
--- NOTE | 2020-02-24 21:55 | EKG REPORT ---
SEVERITY:- BORDERLINE ECG - SINUS RHYTHM BORDERLINE T WAVE ABNORMALITIES : Confirmed by: Noreen Verdugo MD 24-Feb-2020 21:54:12
== END 2020-02-24 15:55 | disposition home or self-care (01) ==
LOC: ER 12:22
DX: O26.892 Other specified pregnancy related conditions, second trimester (principal); R55 Syncope and collapse; R10.817 Generalized abdominal tenderness; O99.282 Endocrine, nutritional and metabolic diseases complicating pregnancy, second trimester; E86.0 Dehydration; Z3A.16 16 weeks gestation of pregnancy; Z87.891 Personal history of nicotine dependence
CPT/HCPCS: 93005; 99284; 96360; 36415; 82962; 85025; 80053; 81001; 93010; J7121